=== PATIENT | male | born 1955 | race African-American/Black ===

== ENCOUNTER → 2017-06-29 | Outpatient (CLI) | payer OTHER | LOC: M SMT PRO 08:30 | DX: R97.20 Elevated prostate specific antigen [PSA] (principal) | CPT/HCPCS: G0416 ==

== ENCOUNTER 2017-08-18 09:06 | Inpatient (IN) | payer OTHER ==
[2017-08-18] MEDS: OMEPRAZOLE 20 MG CAP PO (09:00)
[2017-08-18] MEDS: ATORVASTATIN 20 MG TAB PO (09:00)
[2017-08-18] MEDS: ASPIRIN 81 MG ENTERIC TAB PO (09:00)
[2017-08-18] MEDS: LOSARTAN 50 MG TAB PO (09:00)
[2017-08-18] MEDS: SERTRALINE 100 MG TAB PO (09:00)
[2017-08-18] MEDS ORDERED: CEFAZOLIN SOD 3 GM in APPROPRIATE DILUENT 1 EA IV (09:30)
[2017-08-18 10:07] LABS: BEDSIDE GLUCOSE 201 MG/DL (70-105)
[2017-08-18] MEDS: HEPARIN SOD (PORCINE) 5000 UNITS/ML VIAL SQ (13:40)
[2017-08-18] MEDS ORDERED: ALBUTEROL 90 MCG/ACT 8GM HFA INHALER INH (13:45)
[2017-08-18] MEDS ORDERED: ONDANSETRON 4MG/2ML VIAL (J2405) IV ×2 (13:45→19:15)
[2017-08-18] MEDS ORDERED: GLUCOSE 4 GM CHEW TABLET PO (13:45)
[2017-08-18] MEDS ORDERED: GLUCAGON FOR INJ 1 MG VIAL (J1610) SC (13:45)
[2017-08-18] MEDS ORDERED: DEXTROSE 50% 50 ML SYRINGE IV (13:45)
[2017-08-18] MEDS ORDERED: MORPHINE 4 MG/ML 1ML VIAL (J2270) IV (13:45)
[2017-08-18] MEDS ORDERED: ACETAMINOPHEN TAB 650MG DOSE (2X325MG) PO (13:45)
[2017-08-18] MEDS ORDERED: LIDOCAINE 2% INJ 100 MG/5 ML SDV (FOR ANES.) As Ordered (13:46)
[2017-08-18] MEDS ORDERED: PROPOFOL 200 MG/20 ML VIAL As Ordered (13:46)
[2017-08-18] MEDS ORDERED: MIDAZOLAM INJ 2 MG/2 ML VIAL (J2250) As Ordered (13:46)
[2017-08-18] MEDS: CEFAZOLIN SOD 1 GM in APPROPRIATE DILUENT 1 EA IV ×2 (13:46→22:09)
[2017-08-18] MEDS ORDERED: ROCURONIUM BROMIDE 50 MG/5 ML VIAL As Ordered ×3 (13:46→16:12)
[2017-08-18] MEDS ORDERED: fentaNYL 250 MCG/5 ML INJECTION (J3010) As Ordered (13:46)
[2017-08-18] MEDS ORDERED: DESFLURANE 240 ML INHALANT As Ordered (14:15)
[2017-08-18] MEDS ORDERED: LABETALOL HCL 100 MG/20 ML VIAL As Ordered (14:31)
[2017-08-18] MEDS ORDERED: hydrALAZINE INJ 20 MG/ML VIAL As Ordered (14:54)
[2017-08-18] MEDS ORDERED: HYDROmorphone HCL 2 MG/ML 1ML VIAL (J1170) As Ordered (14:59)
[2017-08-18] MEDS ORDERED: GLYCOPYRROLATE INJ 0.2 MG/ML 2 ML VIAL As Ordered (15:01)
[2017-08-18] MEDS ORDERED: NEOSTIGMINE 10 MG/10 ML VIAL (J2710) As Ordered (15:01)
[2017-08-18] MEDS ORDERED: ONDANSETRON 4MG/2ML VIAL (J2405) As Ordered (15:01)
[2017-08-18] MEDS: HumaLOG INSULIN (NovoLOG) PER UNIT SC ×2 (17:30→20:15)
[2017-08-18] MEDS: BUPIVACAINE HCL 0.25% 30 ML VIAL As Ordered (18:46)
[2017-08-18] MEDS: LIDOCAINE 1% SDV INJ 30 ML VIAL As Ordered (18:46)
[2017-08-18] MEDS ORDERED: ALBUTEROL SULFATE 2.5 MG/0.5 ML INH NEB SOLN As Ordered (19:03)
[2017-08-18] MEDS ORDERED: NORCO, ANEXSIA 5/325MG TABLET (HYDROcodone/ACETAMINOPHEN) PO (19:15)
[2017-08-18] MEDS ORDERED: ALBUTEROL SULFATE 2.5 MG/0.5 ML INH NEB SOLN INH (19:15)
[2017-08-18 19:36] LABS: HEMATOCRIT 40.8 % (42.0-52.0); HEMOGLOBIN 13.6 g/dl (14.0-18.0); MEAN CORPUSCULAR HEMOGLOBIN 26.8 pg (27.0-33.0); MEAN CORPUSCULAR HGB CONC 33.3 g/dl (32.0-36.5); MEAN CORPUSCULAR VOLUME 80.5 fl (80.0-96.0); PLATELET COUNT, AUTOMATED 245 10^3/uL (150-450); RED BLOOD COUNT 5.07 10^6/uL (4.30-6.10); RED CELL DISTRIBUTION WIDTH 13.8 % (11.5-14.5); WHITE BLOOD COUNT 12.3 10^3/uL (4.0-10.0)
[2017-08-18] MEDS: fentaNYL 100 MCG/2 ML INJECTION (J3010) IV (19:37)
[2017-08-18 19:52] LABS: ANION GAP 9 MEQ/L (8-16); BLOOD UREA NITROGEN 13 MG/DL (7-18); CALCIUM LEVEL 9.1 MG/DL (8.5-10.1); CARBON DIOXIDE LEVEL 27 MEQ/L (21-32); CHLORIDE LEVEL 99 MEQ/L (98-107); CREATININE FOR GFR 1.86 MG/DL (0.70-1.30); GLOMERULAR FILTRATION RATE 48.2 (>56); GLUCOSE, FASTING 224 MG/DL (70-100); POTASSIUM SERUM 4.1 MEQ/L (3.5-5.1); SODIUM LEVEL 135 MEQ/L (136-145)
[2017-08-18] MEDS: ADVAIR HFA 115/21MCG INHALER INH ×2 (21:00→22:07)
[2017-08-18] MEDS: CHLORTHALIDONE 25 MG TAB PO (21:31)
[2017-08-18] MEDS: CETIRIZINE (ZyrTEC) 10 MG TAB PO (21:32)
[2017-08-18] MEDS: FLUTICASONE PROP 0.05% NASAL SPRAY 16 GM (FLONASE) (21:32)
[2017-08-18] MEDS: LR 1,000 ML IV ×2 (21:32)
[2017-08-18] MEDS: HEPARIN SOD (PORCINE) 5000 UNITS/ML VIAL SC (21:44)
[2017-08-18] MEDS: DOCUSATE SODIUM 100 MG CAP PO (21:45)
[2017-08-18] MEDS: PERCOCET 5MG/325MG TAB PO (21:45)
[2017-08-18] MEDS: NS 1,000 ML IV (21:45)
[2017-08-18 21:48] LABS: BEDSIDE GLUCOSE 247 MG/DL (70-105)
[2017-08-19] MEDS: PERCOCET 5MG/325MG TAB PO ×3 (04:43→17:29)
[2017-08-19] MEDS: NS 1,000 ML IV ×2 (04:43→07:42)
[2017-08-19] MEDS: CEFAZOLIN SOD 1 GM in APPROPRIATE DILUENT 1 EA IV (05:29)
[2017-08-19] MEDS: HEPARIN SOD (PORCINE) 5000 UNITS/ML VIAL SC ×2 (05:33→15:16)
[2017-08-19 06:13] LABS: MEAN CORPUSCULAR HEMOGLOBIN 26.7 pg (27.0-33.0); MEAN CORPUSCULAR HGB CONC 33.3 g/dl (32.0-36.5); PLATELET COUNT, AUTOMATED 201 10^3/uL (150-450); RED CELL DISTRIBUTION WIDTH 13.9 % (11.5-14.5); WHITE BLOOD COUNT 7.4 10^3/uL (4.0-10.0)
[2017-08-19 06:29] LABS: ANION GAP 9 MEQ/L (8-16); BLOOD UREA NITROGEN 11 MG/DL (7-18); CALCIUM LEVEL 8.4 MG/DL (8.5-10.1); CARBON DIOXIDE LEVEL 25 MEQ/L (21-32); CHLORIDE LEVEL 104 MEQ/L (98-107); CREATININE FOR GFR 1.12 MG/DL (0.70-1.30); GLOMERULAR FILTRATION RATE > 60.0 (>56); GLUCOSE, FASTING 152 MG/DL (70-100); POTASSIUM SERUM 3.5 MEQ/L (3.5-5.1); SODIUM LEVEL 138 MEQ/L (136-145)
[2017-08-19] MEDS: ADVAIR HFA 115/21MCG INHALER INH (08:29)
[2017-08-19] MEDS: OMEPRAZOLE 20 MG CAP PO (08:57)
[2017-08-19] MEDS: SERTRALINE 100 MG TAB PO (08:57)
[2017-08-19] MEDS: DOCUSATE SODIUM 100 MG CAP PO (08:57)
[2017-08-19] MEDS: ATORVASTATIN 20 MG TAB PO (08:57)
[2017-08-19] MEDS: CHLORTHALIDONE 25 MG TAB PO (08:57)
[2017-08-19] MEDS: CETIRIZINE (ZyrTEC) 10 MG TAB PO (08:57)
[2017-08-19] MEDS: ASPIRIN 81 MG ENTERIC TAB PO (08:57)
[2017-08-19] MEDS: HumaLOG INSULIN (NovoLOG) PER UNIT SC ×2 (08:59→12:14)
[2017-08-19] MEDS: LOSARTAN 50 MG TAB PO (09:03)
[2017-08-19] MEDS: FLUTICASONE PROP 0.05% NASAL SPRAY 16 GM (FLONASE) (09:15)
[2017-08-19 11:52] LABS: BEDSIDE GLUCOSE 187 MG/DL (70-105)
[2017-08-19 16:47] LABS: BEDSIDE GLUCOSE 160 MG/DL (70-105)
== END 2017-08-19 18:16 | disposition home or self-care (01) | DRG 708 ==
LOC: M OR 09:06 → M MSPAV 20:43
PROVIDERS: Urology
PROC: 0VT04ZZ Resection of Prostate, Percutaneous Endoscopic Approach (ICD-10-PCS; principal; 2017-08-18 10:45)
PROC: 07BC4ZZ Excision of Pelvis Lymphatic, Percutaneous Endoscopic Approach (ICD-10-PCS; 2017-08-18 10:45)
PROC: 0VT34ZZ Resection of Bilateral Seminal Vesicles, Percutaneous Endoscopic Approach (ICD-10-PCS; 2017-08-18 10:45)
PROC: 8E0W4CZ Robotic Assisted Procedure of Trunk Region, Percutaneous Endoscopic Approach (ICD-10-PCS; 2017-08-18 10:45)
DX: C61 Malignant neoplasm of prostate (principal)

== ENCOUNTER → 2018-01-14 | Outpatient (CLI) | payer OTHER ==
[2018-01-14 13:42] LABS: PROSTATIC SPECIFIC AG MONITOR < 0.01 NG/ML (< 4.0)
== END ==
LOC: M SMT 10:04
DX: C61 Malignant neoplasm of prostate (principal)
CPT/HCPCS: 84153

== ENCOUNTER → 2018-04-08 | Outpatient (CLI) | payer OTHER ==
[2018-04-08 13:48] LABS: PROSTATIC SPECIFIC AG MONITOR < 0.01 NG/ML (< 4.0)
== END ==
LOC: M SMT 10:09
DX: C61 Malignant neoplasm of prostate (principal)
CPT/HCPCS: 84153

== ENCOUNTER → 2018-08-08 | Outpatient (CLI) | payer OTHER ==
[~2018-08-08] MED LIST: /ADVA50050 INH; /THIA10TA PO; AMLO10TAB OR; ASPI81TA83 OR; CETI10TA OR; CHLO25TA PO; CLOB-25 EX; COLA100C5 PO; CRES10TA32 PO; FISH1000 PO; FLON1SPR; FOLI1TAB PO; GEMF600T OR; GLIP5TAB2 PO; GLUC1000 OR; LIPI20TA PO; LOSA50TA88 PO; MAGN500T2 PO; METF500T13 PO; MULTIVIT PO; NEXI20CA OR; NICO14DI3 TD; OMEP40CA2 PO; OXYC1TAB23 PO; PROAAER10 INH; SERT50TA PO; TERA5CAP3 OR; TOLNAFTATE 1% TOP; TRAZ-163 PO; TYLE325T5 PO; VITA100054 PO; XOPEAER INH; [UNRECOGNIZED DRUG - OTHER] EXT
== END ==
LOC: M SMT 10:48
PROVIDERS: ATTEND Urology
DX: C61 Malignant neoplasm of prostate (principal)

== ENCOUNTER 2019-01-20 07:49 | Day surgery (SDC) | payer OTHER ==
[~2019-01-20] VITALS: Ht 177.8 cm; Wt 120.7 kg
[~2019-01-20 07:49] MED LIST changes: -/ADVA50050 INH; +ADV250INH INH; +ADVA1AER2 INH; +ALEV220T22 PO; +ASPI81TA26 PO; +CREO3000 PO; +CRES10TA PO; -CRES10TA32 PO; +DRIS50003 PO; +HUMA100I5 SC; +LEVE1INJ5 SC; +LIDOCAINE 2% INJ 100 MG/5 ML SDV (FOR ANES.) As Ordered ONE; +MULTCAP PO; +NS 1,000 ML IV ONE; -OMEP40CA2 PO; +OMEP40CA97 PO; +PANT40TA3 PO; +SERT-141 PO; -SERT50TA PO; -TRAZ-163 PO; +TRAZ-257 PO; +propofoL 200 MG/20 ML VIAL As Ordered ONE
--- NOTE | 2019-01-20 09:33 | ROOR ---
Patient Name: Justino Peters Procedure Date: 01/20/2019 9:08 AM Date of : 1955 Age: 63 Room: [id number] Gender: Male Note Status: Finalized Procedure: Colonoscopy Indications: High risk colon cancer surveillance: Personal history of colonic polyps Providers: Jean LOPEZ MD Referring MD: MAIRA RAO MD Requesting Provider: Medicines: Monitored Anesthesia Care Complications: No immediate complications. Procedure: Pre-Anesthesia Assessment: - The heart rate, respiratory rate, oxygen saturations, blood pressure, adequacy of pulmonary ventilation, and response to care were monitored throughout the procedure. The Colonoscope was introduced through the anus and advanced to the cecum, identified by appendiceal orifice and ileocecal valve. The colonoscopy was performed without difficulty. The patient tolerated the procedure well. The quality of the bowel preparation was good. Findings: The perianal and digital rectal examinations were normal. A 5 mm polyp was found in the splenic flexure. The polyp was sessile. The polyp was removed with a cold snare. Resection and retrieval were complete. Mild sigmoid diverticulosis and small internal hemorrhoids. The exam was otherwise without abnormality on direct and retroflexion views. Impression: - One 5 mm polyp at the splenic flexure, removed with a cold snare. Resected and retrieved. - Mild sigmoid diverticulosis and small internal hemorrhoids. - The examination was otherwise normal on direct and retroflexion views. Recommendation: - Repeat colonoscopy in 5 years for surveillance. Jean Lopez MD Jean LOPEZ MD 01/20/2019 9:33:14 AM Electronically signed by Jean LOPEZ MD Number of Addenda: 0 Note Initiated On: 01/20/2019 9:08 AM Estimated Blood Loss: Estimated blood loss: none.
[2019-01-20 09:58] VITALS: BP 126/72
== END 2019-01-20 10:10 | disposition home or self-care (01) ==
LOC: M OPP 07:49
PROVIDERS: ATTEND Internal Medicine Gastroenterology
DX: D12.3 Benign neoplasm of transverse colon (principal); K57.30 Diverticulosis of large intestine without perforation or abscess without bleeding; K64.8 Other hemorrhoids; Z86.010 Personal history of colon polyps

== ENCOUNTER → 2019-02-17 | Outpatient (CLI) | payer OTHER ==
[~2019-02-17] MED LIST changes: -LIDOCAINE 2% INJ 100 MG/5 ML SDV (FOR ANES.) As Ordered ONE; -NS 1,000 ML IV ONE; +OMEP40CA2 PO; -OMEP40CA97 PO; +TRAZ-163 PO; -TRAZ-257 PO; -propofoL 200 MG/20 ML VIAL As Ordered ONE
== END ==
LOC: M SMT 14:49
PROVIDERS: ATTEND Urology
DX: C61 Malignant neoplasm of prostate (principal)
CPT/HCPCS: 36415; 84153; G0463

== ENCOUNTER → 2020-04-17 | Outpatient (REF) | payer OTHER ==
[~2020-04-17] MED LIST changes: -OMEP40CA2 PO; +OMEP40CA97 PO; +PANT40TA29 PO; -PANT40TA3 PO; -TRAZ-163 PO; +TRAZ-257 PO
[2020-04-18 10:12] LABS: MALB URINE SIEMENS 32.9 MG/L; MAU/CREAT RATIO 13.3 MCG/MG (0.0-30.0)
== END ==
LOC: M LAB REF 17:18
PROVIDERS: ATTEND Nurse Practitioner Family
DX: E11.65 Type 2 diabetes mellitus with hyperglycemia (principal)

== ENCOUNTER → 2021-01-03 | Outpatient (CLI) | payer OTHER ==
[~2021-01-03] MED LIST changes: +OMEP40CA4 PO; -OMEP40CA97 PO
--- NOTE | 2021-01-03 14:42 | REP ---
INDICATION: NICOTINE DEPENDENCE. COMPARISON: Comparison study November 02, 2006.. TECHNIQUE: Dose reduction was performed utilizing CARE dose with automated adjustment of the kV and MAS according to patient size; iterative reconstruction, automated exposure control, as well as adaptive dose shielding. Helical scanning is acquired and 3 mm axial images are re-formatted at lung windows. FINDINGS: Preliminary digital cuff setter overlock radiograph again demonstrates widening of the mediastinum. There is fairly bulky bilateral mediastinal adenopathy. There is bilateral hilar lymphadenopathy. These findings are essentially unchanged from the 2007 study. The history provided for the prior exam stated sarcoidosis. There is minimal linear fibrosis in the right lower lobe. No pulmonary nodule or mass lesion is observed. no bony destructive lesion is seen. IMPRESSION: Fairly bulky mediastinal and bilateral hilar lymphadenopathy essentially unchanged from 2007 consistent with the history of sarcoidosis. Lung RADS category 2 findings. Repeat screening study suggested in 1 year.. <Electronically signed by Joel Ramos > 01/03/21 0733
== END ==
LOC: M RAD 11:51
PROVIDERS: ATTEND Family Medicine
DX: Z12.2 Encounter for screening for malignant neoplasm of respiratory organs (principal); F17.210 Nicotine dependence, cigarettes, uncomplicated; R59.0 Localized enlarged lymph nodes; J84.10 Pulmonary fibrosis, unspecified; D86.0 Sarcoidosis of lung

== ENCOUNTER → 2021-06-12 | Outpatient (REF) | payer OTHER ==
[2021-06-12 18:37] LABS: CREATININE, URINE 74.8 MG/DL; MALB URINE SIEMENS 6.5 MG/L; MAU/CREAT RATIO 8.6 MCG/MG (0.0-30.0)
== END ==
LOC: M LAB REF 17:01
PROVIDERS: ATTEND Nurse Practitioner Family
DX: E11.65 Type 2 diabetes mellitus with hyperglycemia (principal)

== ENCOUNTER → 2022-03-18 | Outpatient (CLI) | payer OTHER ==
[~2022-03-18] MED LIST changes: +LOSA50TA28 PO; -LOSA50TA88 PO
== END ==
LOC: M RAD 09:12
PROVIDERS: ATTEND Family Medicine
DX: R59.0 Localized enlarged lymph nodes (principal); F17.210 Nicotine dependence, cigarettes, uncomplicated

== ENCOUNTER → 2022-09-15 | Outpatient (CLI) | payer OTHER ==
[~2022-09-15] MED LIST changes: +INSU100I6 SC; -LEVE1INJ5 SC
== END ==
LOC: M PLALAB 09:06
PROVIDERS: ATTEND Urology
DX: C61 Malignant neoplasm of prostate (principal); F17.200 Nicotine dependence, unspecified, uncomplicated; Z80.42 Family history of malignant neoplasm of prostate; Z80.0 Family history of malignant neoplasm of digestive organs
CPT/HCPCS: 36415; 84153; G0463

== ENCOUNTER 2023-08-17 09:12 | Day surgery (SDC) | payer MEDICARE, OTHER ==
[~2023-08-17] VITALS: Ht 177.8 cm; Wt 124.1 kg
[~2023-08-17 09:12] MED LIST changes: +B-2100TA PO; +ERGO500029 PO; +INSUDET SC; +JARD1TAB PO; +MAGN400T35 PO; +METF-839 PO; +OXYC1TAB23; +PROA1AER2 IN; +VASC0.5C PO
[2023-08-17] MEDS: SODIUM BICARBONATE 8.4% INJ 50MEQ 50ML VIAL XX ONE (13:30)
[2023-08-17] MEDS: LIDOCAINE W/EPINEPHRINE 1% 20ML VIAL XX ONE (13:30)
[2023-08-17 13:33] VITALS: BP 160/89; TEMP 97.4; O2SAT 98
[2023-08-17] MEDS: BACITRACIN OINTMENT 30GM TUBE As Ordered ONE (13:34)
== END 2023-08-17 13:55 | disposition home or self-care (01) ==
LOC: M SDC 09:12
PROVIDERS: ATTEND Orthopaedic Surgery Hand Surgery
DX: M72.0 Palmar fascial fibromatosis [Dupuytren] (principal); I10 Essential (primary) hypertension; E78.5 Hyperlipidemia, unspecified; E11.9 Type 2 diabetes mellitus without complications; G47.33 Obstructive sleep apnea (adult) (pediatric); K21.9 Gastro-esophageal reflux disease without esophagitis; F41.9 Anxiety disorder, unspecified; F32.A Depression, unspecified; F17.218 Nicotine dependence, cigarettes, with other nicotine-induced disorders; Z88.8 Allergy status to other drugs, medicaments and biological substances; J45.909 Unspecified asthma, uncomplicated; Z79.899 Other long term (current) drug therapy

== ENCOUNTER → 2023-10-15 | Outpatient (CLI) | payer MEDICARE, OTHER | LOC: M RAD 08:44 | PROVIDERS: ATTEND Family Medicine | DX: Z12.2 Encounter for screening for malignant neoplasm of respiratory organs (principal); F17.210 Nicotine dependence, cigarettes, uncomplicated ==

== ENCOUNTER → 2023-10-20 | Outpatient (REF) | payer MEDICARE, OTHER ==
[2023-10-20 16:16] LABS: CREATININE, URINE 67.5 MG/DL; MAU/CREAT RATIO 7.4 MCG/MG (0.0-30.0)
== END ==
LOC: M LAB REF 15:07
PROVIDERS: ATTEND Nurse Practitioner Family
DX: E11.65 Type 2 diabetes mellitus with hyperglycemia (principal)

== ENCOUNTER 2023-12-19 18:39 | Inpatient (IN) | payer MEDICARE, OTHER ==
[~2023-12-19] VITALS: Ht 177.8 cm; Wt 120.2 kg
[~2023-12-19 18:39] MED LIST changes: -FLON1SPR; +FLON1SPR NARES
[2023-12-19 19:43] LABS: HEMATOCRIT 39.3 % (42.0-52.0); HEMOGLOBIN 13.3 g/dl (13.5-17.5); MEAN CORPUSCULAR HEMOGLOBIN 27.9 pg (27.0-33.0); MEAN CORPUSCULAR HGB CONC 33.8 g/dl (32.0-36.5); MEAN CORPUSCULAR VOLUME 82.4 fl (80.0-96.0); PLATELET COUNT, AUTOMATED 220 10^3/uL (150-450); RED BLOOD COUNT 4.77 10^6/uL (4.30-6.10); WHITE BLOOD COUNT 3.8 10^3/uL (4.0-10.0)
[2023-12-19 20:02] LABS: AMPHETAMINES LEVEL URINE NEGATIVE (NEGATIVE)
[2023-12-19 20:03] LABS: BARBITURATES URINE NEGATIVE (NEGATIVE); BENZODIAZEPINES URINE NEGATIVE (NEGATIVE); COCAINE METABOLITE URINE NEGATIVE (NEGATIVE); METHADONE URINE NEGATIVE (NEGATIVE); OPIATES URINE NEGATIVE (NEGATIVE); PHENCYCLIDINE URINE NEGATIVE (NEGATIVE)
[2023-12-19 20:05] LABS: CANNABINOIDS URINE POSITIVE (NEGATIVE)
[2023-12-19 20:19] LABS: ETHYL ALCOHOL (ETHANOL) 0.016 % (0.000-0.010)
[2023-12-19 20:21] LABS: ALBUMIN 3.4 G/DL (3.2-5.2); ALKALINE PHOSPHATASE 64 U/L (46-116); ALT/SGPT 18 U/L (7.0-40); AST/SGOT 14 U/L (<34); BILIRUBIN,DIRECT 0.1 MG/DL (<0.4); BILIRUBIN,TOTAL 0.4 MG/DL (0.3-1.2); BLOOD UREA NITROGEN 7 MG/DL (9-23); CALCIUM LEVEL 9.4 MG/DL (8.3-10.6); CARBON DIOXIDE LEVEL 26 MMOL/L (20-31); CHLORIDE LEVEL 107 MMOL/L (98-107); CREATININE FOR GFR 0.79 MG/DL (0.70-1.30); GLOMERULAR FILTRATION RATE > 60.0 (>49); GLUCOSE, FASTING 123 MG/DL (74-106); POTASSIUM SERUM 3.9 MMOL/L (3.5-5.1); SALICYLATE LEVEL < 3.0 MG/DL (<30); SODIUM LEVEL 142 MMOL/L (136-145); TOTAL PROTEIN 6.6 G/DL (5.7-8.2)
[2023-12-19 20:22] LABS: THYROID STIMULATING HORMONE 0.604 uIU/ML (0.55-4.78)
[2023-12-19] MEDS ORDERED: diphenhydrAMINE 25MG CAP PO PRN (21:55)
[2023-12-19] MEDS ORDERED: MOM 30ML SUSPENSION UDC PO PRN (21:55)
[2023-12-19] MEDS ORDERED: ACETAMINOPHEN TAB 650MG DOSE (2X325MG) PO PRN (21:55)
[2023-12-19] MEDS ORDERED: MAALOX 30 ML SUSP *UDC PO PRN (21:55)
[2023-12-19] MEDS ORDERED: IBUPROFEN 400MG TAB PO PRN (21:55)
[2023-12-19 23:30] VITALS: BP 170/98
[2023-12-19 23:40] VITALS: BP 170/98; TEMP 97.4; O2SAT 99
[2023-12-19] MEDS ORDERED: LORazepam 2 MG TAB PO PRN (23:45)
[2023-12-19] MEDS ORDERED: GLUCAGON INJ 1MG VIAL SC PRN (23:55)
[2023-12-19] MEDS ORDERED: DEXTROSE 50% 50ML SYRINGE IV PRN (23:55)
[2023-12-19] MEDS ORDERED: GLUCOSE 4 GM CHEW PO PRN (23:55)
[2023-12-20] MEDS: THIAMINE 100 MG TAB PO SCH (00:18)
[2023-12-20] MEDS: amLODIPine 5 MG TAB PO ONE (00:18)
[2023-12-20] MEDS ORDERED: FLUT1BLS2 INH (00:46)
[2023-12-20] MEDS ORDERED: ICOS1CAP PO (00:53)
[2023-12-20] MEDS ORDERED: HOME MED LIST COMPLETE! XX SCH (00:55)
[2023-12-20 05:55] VITALS: BP 156/98; TEMP 98.5; O2SAT 99
[2023-12-20] MEDS: INSULIN LISPRO (NovoLOG) PER UNIT SC SCH ×2 (06:48→20:27)
[2023-12-20 07:39] VITALS: BP 168/88
[2023-12-20] MEDS: IPRATROPIUM 0.5MG/ALBUTEROL 2.5MG INH SOL UD 3ML (DUONEB) NEB SCH (08:00)
[2023-12-20 08:04] VITALS: BP 168/88; TEMP 98.2; O2SAT 98
[2023-12-20] MEDS: ASPIRIN 81MG ENTERIC TABLET PO SCH (08:18)
[2023-12-20] MEDS: LEVEMIR (INSULIN DETEMIR) 1 UNITS/0.01ML SC SCH (08:18)
[2023-12-20] MEDS: MULTIVITAMINS/MINERALS THERAP 1 TAB PO SCH (08:18)
[2023-12-20] MEDS: MAGNESIUM OXIDE 400MG TAB (MAG-OX) PO SCH (08:18)
[2023-12-20] MEDS: ATORVASTATIN 20 MG TAB PO SCH (08:18)
[2023-12-20] MEDS: FOLIC ACID 1MG TAB PO SCH (08:18)
[2023-12-20] MEDS: ADVAIR HFA 115/21MCG INHALER INH SCH (08:19)
[2023-12-20] MEDS: NICOTINE 21MG/24HR 1 EA TRANSDERMAL TD SCH (09:00)
[2023-12-20] MEDS ORDERED: PROPRANOLOL 10 MG TAB PO PRN (09:10)
[2023-12-20] MEDS: LOSARTAN 50MG TABLET PO SCH (09:52)
[2023-12-20] MEDS: NALTREXONE 50 MG TAB PO SCH (09:52)
[2023-12-20 10:33] VITALS: BP 148/90; TEMP 98.5; O2SAT 97
[2023-12-20] MEDS: CHLORTHALIDONE 25 MG TAB PO SCH (11:41)
[2023-12-20] MEDS: FLUTICASONE PROP 0.05% NASAL SPRAY 16 GM (FLONASE) NARES SCH (11:41)
[2023-12-20 16:00] VITALS: BP 146/88
[2023-12-20 18:45] VITALS: BP 128/84; TEMP 97.7
[2023-12-20] MEDS: traZODone 50 MG TAB PO PRN (20:27)
[2023-12-21] VITALS (7 sets, daily range): BP systolic 124–166; BP diastolic 74–90; TEMP 98.2; O2SAT 100
[2023-12-21 08:17] LABS: CHOLESTEROL RISK RATIO 3.19 (<5); HDL CHOLESTEROL 59.2 MG/DL (>40); LDL CHOLESTEROL 70.4 MG/DL (<100); NON-HDL-C 129.8 MG/DL
[2023-12-21] MEDS: PILL CUTTER 1 EACH XX PRN (09:33)
[2023-12-21] MEDS: SERTRALINE HCL 25 MG TABLET PO SCH (12:13)
[2023-12-22 06:26] VITALS: BP 140/85; TEMP 97; O2SAT 100
[2023-12-22 07:02] VITALS: BP 140/85
[2023-12-22 09:13] VITALS: BP 162/88
[2023-12-22 09:22] VITALS: BP 162/88
[2023-12-22] MEDS ORDERED: NICO21PAT TD (11:02)
[2023-12-22] MEDS ORDERED: NALT50TA4 PO (11:02)
[2023-12-22] MEDS ORDERED: TRAZ-252 PO (11:02)
[2023-12-22] MEDS ORDERED: SERT25TA21 PO (11:02)
[2023-12-22] MEDS ORDERED: LOSA-528 PO (11:02)
== END 2023-12-22 12:36 | disposition home or self-care (01) | DRG 882 ==
LOC: M ED 18:39 → M ED INP 21:51 → M PSY 23:04
PROVIDERS: ADMIT Student in an Organized Health Care Education/Training Program; ATTEND Student in an Organized Health Care Education/Training Program
DX: F43.10 Post-traumatic stress disorder, unspecified (principal); R45.851 Suicidal ideations; F32.9 Major depressive disorder, single episode, unspecified; I10 Essential (primary) hypertension; F10.20 Alcohol dependence, uncomplicated; F43.20 Adjustment disorder, unspecified; E78.5 Hyperlipidemia, unspecified; E11.9 Type 2 diabetes mellitus without complications; G47.33 Obstructive sleep apnea (adult) (pediatric); F17.200 Nicotine dependence, unspecified, uncomplicated; Z79.899 Other long term (current) drug therapy; Z79.82 Long term (current) use of aspirin; Z79.4 Long term (current) use of insulin; Z79.84 Long term (current) use of oral hypoglycemic drugs; Z88.8 Allergy status to other drugs, medicaments and biological substances; Z87.820 Personal history of traumatic brain injury; Z85.46 Personal history of malignant neoplasm of prostate; J44.9 Chronic obstructive pulmonary disease, unspecified; N52.9 Male erectile dysfunction, unspecified; K21.9 Gastro-esophageal reflux disease without esophagitis; M19.90 Unspecified osteoarthritis, unspecified site

== ENCOUNTER 2024-05-04 06:59 | Day surgery (SDC) | payer OTHER ==
[~2024-05-04] VITALS: Ht 177.8 cm; Wt 125.0 kg
[~2024-05-04 06:59] MED LIST changes: -ADV250INH INH; +ADVA1AER9 INH; +FLUT1BLS2 INH; +ICOS1CAP PO; +LANTINJ4 SQ; +LOSA-528 PO; +NALT50TA4 PO; +NICO21PAT TD; +NS 250 ML IV ONE; +PROA1AER2; +SERT25TA21 PO; +TRAZ-252 PO
[2024-05-04] MEDS ORDERED: propofoL 200 MG/20 ML VIAL As Ordered ONE (07:14)
[2024-05-04] MEDS ORDERED: GLYCOPYRROLATE INJ 0.2 MG/ML 2 ML VIAL As Ordered ONE (07:48)
[2024-05-04 07:55] VITALS: TEMP 97.9
[2024-05-04 08:15] VITALS: BP 128/94; O2SAT 98
== END 2024-05-04 08:20 | disposition home or self-care (01) ==
LOC: M OPP 06:59
PROVIDERS: ATTEND Internal Medicine Gastroenterology
DX: Z12.11 Encounter for screening for malignant neoplasm of colon (principal); D12.0 Benign neoplasm of cecum; K57.30 Diverticulosis of large intestine without perforation or abscess without bleeding; K64.8 Other hemorrhoids; Z86.0100 Personal history of colon polyps, unspecified; K21.9 Gastro-esophageal reflux disease without esophagitis; Z85.46 Personal history of malignant neoplasm of prostate; E11.9 Type 2 diabetes mellitus without complications; I10 Essential (primary) hypertension; J44.9 Chronic obstructive pulmonary disease, unspecified; E78.00 Pure hypercholesterolemia, unspecified; F17.210 Nicotine dependence, cigarettes, uncomplicated; Z79.899 Other long term (current) drug therapy; Z79.4 Long term (current) use of insulin; Z79.82 Long term (current) use of aspirin; Z79.84 Long term (current) use of oral hypoglycemic drugs; Z88.8 Allergy status to other drugs, medicaments and biological substances; Z90.79 Acquired absence of other genital organ(s)
CPT/HCPCS: 45385; 88305; J1596